=== PATIENT | male | born 1980 | race Caucasian/White ===

== ENCOUNTER 2019-07-05 18:03 | Emergency (ER) | payer OTHER, SELFPAY ==
[2019-07-05 18:15] VITALS: BP 137/92; PULSE 87; RESP 17; TEMP 36.8; O2SAT 97; BMI 31.3
--- NOTE | 2019-07-05 18:18 | W.ED.UPPEXIN ---
HPI - Extremity Injury (Upper) General: Chief Complaint: Wound/Laceration Stated Complaint: right hand lac Time Seen by Provider: 07/05/19 18:19 Source: patient Mode of arrival: ambulatory Limitations: no limitations History of Present Illness: HPI narrative: Patient comes in today for injury to the right dorsal hand at the second digit, index finger, knuckle. Patient was seen at urgent care and they referred here for further evaluation. Patient appears well. Patient appears in mild pain. Patient reports he was washing dishes and a glass broke cutting the dorsal aspect of his right hand index finger knuckle. Patient appears well. Patient denies any chronic medical problems. Patient injury occurred 1 to 2 hours prior to arrival. complaint: injury to: right Review of Systems General: Reports: 10 or more systems reviewed and unremarkable except in HPI and below Musc: Reports: joint pain PFSH ED PFSH: Social History Smoking and tobacco status: current every day smoker Physical Exam Const: COMMON NORMALS: no apparent distress and oriented x3 GENERAL APPEARANCE: cooperative HENMT: COMMON NORMALS: normocephalic, TM's normal bilaterally and external nose normal HEAD & SCALP: normal to inspection and normocephalic NOSE: external nose normal TYMPANIC MEMBRANE: TM's normal bilaterally MOUTH: oral and palatal mucosa normal THROAT: posterior oropharynx normal Eye: GENERAL EYE: normal appearance of both eyes Neck/C-Spine: COMMON NORMALS: full ROM Lymph: LYMPHATIC: no lymphadenopathy noted Chest: COMMONS NORMALS: inspection of chest normal Resp: COMMON NORMALS: normal respiratory effort EFFORT & INSPECTION: Yes able to speak in complete sentences Cardio: COMMON NORMALS: regular rate and regular rhythm RATE: regular rate RHYTHM: regular rhythm GI: COMMON NORMALS: non-tender : COMMON NORMALS: Yes no CVA tenderness BLADDER/KIDNEY EXAM: Yes no CVA tenderness Back/Pelvis: COMMON NORMALS: no CVA tenderness and thoracic and lumbar spine normal to inspection Extremity: COMMON NORMALS: normal to inspection Neuro: COMMON NORMALS: oriented x3 and moves all extremities Psych: COMMON NORMALS: mental status grossly normal and cooperative Skin: NARRATIVE SKIN EXAM: Laceration is noted across index finger distal metacarpal joint. Patient has normal range of motion of the finger but reports increased pain with hyperextension of the finger. Distal cap refill is in place. Distal sensation is noted. Examination of the laceration notes some reticula ligament involvement. Course Vital Signs: Vital signs: Vital Signs Temperature 98.2 F 07/05/19 18:15 Pulse Rate 87 07/05/19 18:15 Respiratory Rate 17 07/05/19 18:15 Blood Pressure 137/92 07/05/19 18:15 Pulse Oximetry 97 07/05/19 18:15 MDM - Extremity Injury (Upper) MDM Narrative: Medical decision making narrative: Patient was sent here from urgent care for concerns of laceration over the knuckle of the index finger on the right hand. Concern for ligament injury was reported by patient. Exam notes normal range of motion of the digit. Distal cap refill is normal. Sensation is intact. Patient has a 2-1/2 cm laceration to the knuckle of the index finger on the right hand. Examination notes a small laceration to the reticular ligament of the joint. After anesthesia was given patient did demonstrate good strength on flexion and extension of the finger. Differential diagnosis includes but not limited to tendon injury, laceration, fracture, foreign body. X-ray noted no fracture or dislocation. Exam noted no significant tendon injury. Laceration was closed with 5 sutures of 4-0 Ethilon. Patient tolerated well. Wound was dressed with a nonstick dry dressing and splint was applied for protection of the wound. We will set up orthopedic referral for reevaluation of injury to ensure proper healing and no tendon dysfunction. Patient reported understanding agreed to plan. Discharge Plan Discharge Patient Disposition: Home, Self-Care Clinical Impression: Laceration Condition: Stable Prescriptions: New cephalexin 500 mg capsule 500 mg PO BID 10 Days Qty: 20 RF: 0 Discharge Orders: Discharge Order (Routine); Ordered 07/05/19 Ordered By: Shane Botello Referrals: Griffin Cohen DO [Primary Care Provider] - Discharge Diet: Usual diet Discharge Activity: Limit activity as instructed Patient Instructions: Finger Laceration (ED) Activity Restrictions/Additional Instructions: Keep wound clean and dry. Take antibiotic as directed. Use splint for the next 7 to 10 days while sutures are in. Follow-up with orthopedics for repeat evaluation. Acetaminophen and ibuprofen for pain. Return to the ER for high fever or worsening pain. Follow-up with primary care in 1 week. 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
--- NOTE | 2019-07-05 18:23 | XR_ITS ---
WS: [id number] RIGHT HAND: 3 VIEW(S) TECHNIQUE: PA, oblique and lateral. HISTORY: injury COMPARISON: 02/03/2013 Soft tissue injury and laceration along the thenar eminence and lateral hand. No foreign body or bone abnormality. XR/XR hand RT min 3V* [id number] IMPRESSION: Soft tissue injury along the thenar eminence. No foreign body.
[2019-07-05] MEDS: lidocaine 1% INJ 20 mL 6 ML SUBCUT (18:47)
[2019-07-05] MEDS: cephALEXin 500 mg Capsule PO (19:32)
--- NOTE | 2019-07-05 19:46 | PC.NURSE ---
Splint application Alumifoam application to right index finger after telfa and gauze applied over sutures. Secured with coban.
--- NOTE | 2019-07-06 10:55 | DCPLANNER ---
it service delivery manager had message to schedule a follow up appointment for patient with ortho. it service delivery manager called the ortho clinic, spoke with Beatris, gave clinic patients information. it service delivery manager was told that patients information would be printed and reviewed. Clinic will call case managers and patient with appointment information.
--- NOTE | 2019-07-07 12:24 | DCPLANNER ---
Elizabeth [place] [facility] [place] clinical case manager and stated that after review of patients chart, that Dr. Mata recommends that patient follow up with primary care physician. Clinic will call patient and inform patient of this.
== END 2019-07-05 19:37 | disposition home or self-care (01) ==
PROVIDERS: Emergency Provider Nurse Practitioner Family; Family Provider Electrodiagnostic Medicine; PCP Electrodiagnostic Medicine
DX: S61.201A Unspecified open wound of left index finger without damage to nail, initial encounter (principal); W25.XXXA Contact with sharp glass, initial encounter; F17.210 Nicotine dependence, cigarettes, uncomplicated
CPT/HCPCS: 12001; 12345; 73130; 99281; 99283; J2001